=== PATIENT | female | born 2000 | race Two or more races ===

== ENCOUNTER 2020-05-09 22:37 | Emergency (ER) | payer MEDICAID ==
--- NOTE | 2020-05-09 23:43 | EDM.PDOC ---
ED HPI GENERAL MEDICAL PROBLEM - General Chief Complaint: Genitourinary Problem Stated Complaint: UTI SYMPTOMS, BURNING, FREQUENCY Time Seen by Provider: 05/09/20 23:38 Source of Information: Reports: Patient, RN Notes Reviewed History Limitations: Reports: No Limitations - History of Present Illness INITIAL COMMENTS - FREE TEXT/NARRATIVE: 20-year-old female presents emergency department today with complaint of dysuria and frequency, she states been ongoing for last couple days feels like a urinary tract infection she has not had any back pain or fevers vagina Pain Score (Numeric/FACES): 5 - Related Data Allergies Allergy/AdvReac Type Severity Reaction Status Date / Time No Known Allergies Allergy Verified 05/09/20 23:28 Home Meds: Home Meds . [Unable to Verify Home Med List] 05/09/20 [History] Past Medical History Psychiatric History: Reports: Depression - Infectious Disease History Infectious Disease History: Reports: Chicken Pox Social & Family History - Tobacco Use Tobacco Use Status *Q: Never Tobacco User - Caffeine Use Caffeine Use: Reports: Coffee - Recreational Drug Use Recreational Drug Use: No ED ROS GENERAL - Review of Systems Review Of Systems: See Below Constitutional: Reports: No Symptoms : Reports: Dysuria, Frequency ED EXAM, RENAL/ - Physical Exam Exam: See Below Exam Limited By: No Limitations General Appearance: Alert, WD/WN, No Apparent Distress Respiratory/Chest: No Respiratory Distress GI/Abdominal: Normal Bowel Sounds, Soft, Non-Tender Back Exam: No: CVA Tenderness (R), CVA Tenderness (L) Course - Vital Signs Last Recorded V/S: Last Vital Signs Temp 98.9 F 05/09/20 23:29 Pulse 84 05/09/20 23:29 Resp 16 05/09/20 23:29 BP 132/85 05/09/20 23:29 Pulse Ox 96 05/09/20 23:29 - Orders/Labs/Meds Labs: Laboratory Tests 05/09/20 Range/Units 22:56 Urine Color Yellow (YELLOW) Urine Appearance Slightly cloudy A (CLEAR) Urine pH 5.5 (5.0-8.0) Ur Specific [place] >= 1.030 (1.008-1.030) Urine Protein Trace H (NEGATIVE) mg/dL Urine Glucose (UA) Negative (NEGATIVE) mg/dL Urine Ketones Negative (NEGATIVE) mg/dL Urine Occult Blood Negative (NEGATIVE) Urine Nitrite Negative (NEGATIVE) Urine Bilirubin Negative (NEGATIVE) Urine Urobilinogen 0.2 (0.2-1.0) EU/dL Ur Leukocyte Esterase Negative (NEGATIVE) Urine RBC 0-5 (0-5) Urine WBC 0-5 (0-5) Ur Epithelial Cells Many Amorphous Sediment Rare Urine Bacteria Few Urine Mucus Rare Departure - Departure Time of Disposition: 23:43 Disposition: Home, Self-Care 01 Condition: Fair Clinical Impression: Dysuria - Discharge Information Instructions: Dysuria Referrals: PCP,None [Primary Care Provider] - Additional Instructions: Take full course of antibiotics, please followup with your primary care provider in 3-5 days if not better, please call return to the emergency department with worsening of symptoms. Sepsis Event Note (ED) - Evaluation Sepsis Screening Result: No Definite Risk - Focused Exam Vital Signs: Vital Signs Temp Pulse Resp BP Pulse Ox 05/09/20 23:29 98.9 F 84 16 132/85 96 05/09/20 23:24 98.9 F 84 16 132/85 96 - Assessment/Plan Plan: Assessment Acuity = acute Site and laterality = dysuria and frequency Etiology = suspicious for urinary tract infection Manifestations = none Location of injury = Home Lab values = urinalysis unremarkable cultures pending Plan Elected to treat empirically Bactrim DS 1 tab p.o. twice daily x3 days follow-up primary care 3 to 5 days if not better This note was dictated using [employer] 3D voice recognition software please call with any questions on syntax or grammar.
== END 2020-05-09 23:56 | disposition home or self-care (01) ==
LOC: JP.ED 22:37
DX: R30.0 Dysuria (principal)
CPT/HCPCS: 81001; 99283